=== PATIENT | female | born 1950 | race Caucasian/White ===

== ENCOUNTER 2016-11-19 19:57 | Emergency (ER) | payer BC ==
[2016-11-19 20:06] VITALS: BP 106/76; PULSE 68; RESP 16; TEMP 97.9; O2SAT 99
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
--- NOTE | 2016-11-20 07:52 | RAD ---
HISTORY: knee pain, left COMPARISON: No prior FINDINGS: BONES: Normal. No fracture. JOINTS: Normal. No osteoarthritis. SOFT TISSUE: Normal. OTHER FINDINGS: None . IMPRESSION: Normal Bone Xray.
== END 2016-11-19 23:06 | disposition home or self-care (01) ==
LOC: H.ER 19:57
DX: S83.92XA Sprain of unspecified site of left knee, initial encounter (principal); X50.9XXA Other and unspecified overexertion or strenuous movements or postures, initial encounter; Y92.410 Unspecified street and highway as the place of occurrence of the external cause